=== PATIENT | female | born 1950 | race Caucasian/White ===

== ENCOUNTER 2019-06-07 08:38 | Outpatient (CLI) | payer OTHER ==
[~2019-06-07 08:38] MED LIST: AZILECT1 MG; COQ-10100 MG; LIPITOR20 MG; SYNTHROID75 MCG
== END 2019-06-07 08:39 | disposition home or self-care (01) ==
LOC: TOM 08:38
DX: R31.0 Gross hematuria (principal)
CPT/HCPCS: 74178; Q9965

== ENCOUNTER 2019-08-16 15:11 | Outpatient (CLI) | payer OTHER | END 2019-08-16 15:13 | disposition home or self-care (01) | LOC: RAD 15:11 | DX: S73.034A Other anterior dislocation of right hip, initial encounter (principal); S73.035A Other anterior dislocation of left hip, initial encounter ==